=== PATIENT | female | born 1985 | race Caucasian/White ===

== ENCOUNTER → 2017-01-01 10:22 | Outpatient (CLI) | payer OTHER | END | disposition home or self-care (01) | LOC: D.MRI 10:22 | DX: M25.511 Pain in right shoulder (principal) ==

== ENCOUNTER → 2018-02-23 12:07 | Outpatient (CLI) | payer OTHER ==
[~2018-02-23 12:07] MED LIST: KLONOPIN1 MG PO; PERCOCET 5-3251 TAB PO
[2018-03-19 09:20] VITALS: BMI 22.6
== END | disposition home or self-care (01) ==
LOC: D.RAD 12:07
DX: M25.511 Pain in right shoulder (principal)

== ENCOUNTER 2018-03-19 08:24 | Day surgery (SDC) | payer OTHER ==
[2018-03-18 12:54] LABS: HEMATOCRIT 39.8 % (36.0-48.0); HEMOGLOBIN 14.1 g/dL (12-16); MCH 30.8 pg (26.0-34.0); MCHC 35.4 g/dL (31.0-37.0); MCV 86.9 fL (80.0-100.0); MEAN PLATELET VOLUME 8.8 fL (7.4-10.4); RBC 4.58 10x6/uL (4.00-5.40); RDW 12.3 % (11.5-14.5)
[~2018-03-19] VITALS: Ht 170.2 cm; Wt 65.3 kg
--- NOTE | ~2018-03-19 | OP ---
PATIENT NAME: KATIE SANDHU MEDICAL RECORD: [id number] :87 LOCATION:[facility] ADMISSION DATE: SURGEON: SIMON LEE DO DATE OF OPERATION: 03/19/2018 PROCEDURE PERFORMED: Right shoulder arthroscopy with biceps tenodesis and labral debridement. PREOPERATIVE DIAGNOSES: Right shoulder SLAP tear. POSTOPERATIVE DIAGNOSES: Right shoulder SLAP tear. INDICATIONS: Ms. Sandhu is a 32-year-old female who has had right shoulder pain for quite some time. 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 She has had difficulty lifting and having pain. She tried all manner of nonoperative treatment including physical therapy and injections with no avail. She wanted something done surgically. An MR arthrogram was done revealing a SLAP tear. We discussed the risks and benefits of the SLAP repair versus a biceps tenodesis and it was decided since she is not an overhead athlete, we would proceed with a biceps tenodesis. She was informed that she could have infection, bleeding, damage to nerves and vessels, and need for further surgery. She was okay with those risks as well as bicep deformity in the proximal arm and she signed the consent. SURGEON: Simon Lee DO DESCRIPTION OF PROCEDURE: The patient was given 900 mg of clindamycin preoperatively, given a block by anesthesia preoperatively, taken to the operative suite, laid in the left lateral recumbent position with the right arm up. The right shoulder was prepped and draped in sterile fashion. A timeout was performed and everyone was in agreement as to the correct side, site, patient and procedure. A 60 mL of normal saline was then injected into the shoulder joint. After timeout had been performed and that was done, the shoulder joint itself was somewhat difficult to enter. Once the shoulder joint was entered, the anterior portal had been established prior as well as the lateral portal with an 18-gauge spinal needle and an 11-blade scalpel. The flap tear was encountered and this seemed to be larger than anticipated on the MRI and biceps tenodesis was then performed. The subscapularis tendon was inspected and seen to have no tears as well the supraspinatus. The inferior gutter of the shoulder looked to be clean as well. The cartilage on the humerus and the glenoid seemed to be intact. The scope was then taken out of the joint and the open procedure began. The shaver was then entered in the shoulder and labrum was debrided that was somewhat loose and then the open tenodesis of the biceps was done making an incision on the anterior humerus. Dissection was made down to find the biceps tendon. It was removed, whipstitched, and then put into the humerus with a single button unicortical and tied down and then a free needle was tied through the biceps tendon, securing the button down as well and tied down. The excess tendon and suture was cut at that time. The wounds were thoroughly irrigated. The biceps tenodesis site was closed with 2-0 Vicryl in inverted interrupted fashion, 4-0 Monocryl was ran on the skin, 4-0 Monocryl was then used to close the 2 posterior portals and the lateral and anterior portals in an inverted interrupted fashion. Dermabond was placed on each of the incisions. Telfa and Tegaderm was placed and the patient was awakened and taken to recovery in stable condition and given a sling. BLOOD LOSS: Minimal. OPERATIVE REPORT [id number] KATIE SANDHU COMPLICATIONS: None. TRANSINT:[id number] Voice Confirmation ID: [id number] DOCUMENT ID: [id number] SIMON LEE DO at 1350 CC: [id number] DICTATION DATE: 03/19/18 1310 [employer] OPERATOR: 03/19/[address] [facility] [address] [place] [address]
[~2018-03-19 08:24] MED LIST changes: -PERCOCET 5-3251 TAB PO
[2018-03-19 09:20] VITALS: BP 112/68; Ht 170.2 cm; Wt 65.3 kg
[2018-03-19] MEDS ORDERED: PERCOCET 5-3251 TAB PO (13:04)
== END 2018-03-19 15:20 | disposition home or self-care (01) ==
LOC: D.OPS 08:24 → D.PAN 10:00 → D.OPS 12:15 → D.PAN 12:15 → D.OPS 12:45 → D.PAN 12:45 → D.OPS 15:20
PROVIDERS: Anesthesiology
DX: S43.431A Superior glenoid labrum lesion of right shoulder, initial encounter (principal)

== ENCOUNTER → 2019-01-17 10:55 | Outpatient (CLI) | payer OTHER ==
[2018-03-19 09:20] VITALS: BMI 22.6
[~2019-01-17 10:55] MED LIST changes: +PERCOCET 5-3251 TAB PO
== END | disposition home or self-care (01) ==
LOC: D.MRI 01-14 10:00
PROVIDERS: ATTEND Orthopaedic Surgery
DX: M54.12 Radiculopathy, cervical region (principal)